=== PATIENT | female | born 1975 | race Caucasian/White ===

== ENCOUNTER 2016-12-11 22:03 | Emergency (ER) | payer OTHER ==
[~2016-12-11] VITALS: Ht 172.7 cm; Wt 65.0 kg
[~2016-12-11 22:03] MED LIST: LORTA5 PO; ZOFR4TAB3 SL
[2016-12-11 22:11] VITALS: BP 142/87; PULSE 101; RESP 18; TEMP 97.9; O2SAT 100
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
[2016-12-11] MEDS ORDERED: HYDR-3533 PO (22:56)
== END 2016-12-11 23:40 | disposition home or self-care (01) ==
LOC: NEPA 22:03
DX: S62.306A Unspecified fracture of fifth metacarpal bone, right hand, initial encounter for closed fracture (principal); K85.90 Acute pancreatitis without necrosis or infection, unspecified; F17.210 Nicotine dependence, cigarettes, uncomplicated; F10.10 Alcohol abuse, uncomplicated; Y04.0XXA Assault by unarmed brawl or fight, initial encounter
CPT/HCPCS: 29125; 73130

== ENCOUNTER 2017-11-17 13:49 | Emergency (ER) | payer SELFPAY ==
[~2017-11-17 13:49] MED LIST changes: +HYDR-3533 PO; -LORTA5 PO; -ZOFR4TAB3 SL
[2017-11-17 13:51] VITALS: BP 152/97; PULSE 106; RESP 16; TEMP 98.7; O2SAT 97
== END 2017-11-17 15:05 | disposition left against medical advice (07) ==
LOC: NEPK 13:49
DX: M25.511 Pain in right shoulder (principal)
CPT/HCPCS: 99281